=== PATIENT | female | born 1945 | race Caucasian/White ===

== ENCOUNTER 2024-08-08 20:29 | Emergency (ER) | payer MEDICARE ==
[~2024-08-08] VITALS: Ht 157.5 cm; Wt 58.0 kg
[2024-08-08 20:35] VITALS: BP 193/87
[2024-08-08] MEDS ORDERED: DECADRON4 MG PO (20:40)
[2024-08-08 21:01] VITALS: BP 155/75
[2024-08-08 21:30] VITALS: BP 171/75
[2024-08-08 21:34] VITALS: BP 171/75
== END 2024-08-08 21:34 | disposition home or self-care (01) ==
LOC: ED 20:29
DX: S80.862A Insect bite (nonvenomous), left lower leg, initial encounter (principal); E78.5 Hyperlipidemia, unspecified; F32.A Depression, unspecified; W57.XXXA Bitten or stung by nonvenomous insect and other nonvenomous arthropods, initial encounter